=== PATIENT | male | born 1985 | race Caucasian/White ===

== ENCOUNTER 2020-06-04 07:14 | Outpatient (CLI) | payer OTHER, SELFPAY ==
[2020-06-04 08:00] LABS: Basophils Percent Auto 0.4 % (0.2-1.2); Eosinophils Absolute Auto 0.2 K/mm3 (0-0.3); Hematocrit 47.6 % (42.0-52.0); Hemoglobin 16.5 g/dL (14.0-18.0); Immature Granulocyte Absolute 0.03 K/mm3 (0.00-0.031); Immature Granulocyte Percent A 0.6 % (0-0.5); Lymphocytes Absolute Auto 1.33 K/mm3 (0.9-3.2); Lymphocytes Percent Auto 26.8 % (18.3-44.2); Mean Corpuscular HGB Conc 34.7 g/dl (32-36); Mean Corpuscular Volume 89.5 fl (80-100); Mean Platelet Volume 10.3 fl (7.4-10.4); Monocytes Absolute Auto 0.6 K/mm3 (0.1-0.6); Monocytes Percent Auto 11.9 % (2.6-8.5); Neutrophils Absolute Auto 2.9 K/mm3 (1.3-6.7); Neutrophils Percent Auto 57.3 % (45.5-73.1); Platelet Count Result 150 k/mm3 (150-375); Red Blood Count 5.32 M/mm3 (4.6-6.20); Red Cell Distribution Width 12.9 % (11.5-14.5)
[2020-06-04 08:21] LABS: Alanine Aminotransferase 316 U/L (4-50); Albumin Level 4.7 g/dL (3.5-5.1); Alkaline Phosphatase 58 U/L (38-126); Anion Gap 8 mmol/L (8-16); Aspartate Amino Transferase 180 U/L (17-59); Bilirubin,Total 0.7 mg/dL (0.2-1.3); Blood Urea Nitrogen 14 mg/dL (9-20); Calcium 9.5 mg/dL (8.4-10.2); Carbon Dioxide 28 mmol/L (22-30); Chloride 105 mmol/L (98-107); Cholesterol 266 mg/dL (0-200); Estimated Glomerular Filt Rate > 60; Glucose 129 mg/dL (75-110); HDL Direct 56 mg/dL; Potassium 4.7 mmol/L (3.4-5.0); Sodium 141 mmol/L (137-145); Triglycerides 283 mg/dL (<150)
[2020-06-04 08:33] LABS: LDL Cholesterol Direct 183 mg/dL
[2020-06-04 10:25] LABS: Iron 109 ug/dL (49-181)
[2020-06-04 10:34] LABS: Percent Iron Saturation 29 % (20-50)
[2020-06-04 11:00] LABS: Hepatitis B Surface Antigen Negative (Negative)
[2020-06-04 11:08] LABS: HIV 1/2 Ab P24 Ag Result Negative (Negative)
[2020-06-04 11:18] LABS: Hepatitis C Virus Antibody Negative (Negative)
[2020-06-06 21:56] LABS: Amphetamines negative; Barbiturates negative; Benzodiazepines negative; Cocaine Metabolites negative; Marijuana Metabolites negative; PCP negative
[2020-06-07 07:26] LABS: FSH 4.4 mIU/mL (1.6-8.0); LH 4.1 mIU/mL (1.5-9.3)
[2020-06-08 13:02] LABS: Testosterone Free 69.9 pg/mL (35.0-155.0); Testosterone Total 308 ng/dL (250-1100)
[2020-06-11 23:26] LABS: Gliadin AB, IgG 3 Units (<20); Reticulin IgA Negative (Negative); TTG IGA AB 1 U/mL (<4)
[2020-06-14 16:50] LABS: Estradiol, Ultrasensitive 29 pg/mL (< OR = 29)
== END 2020-06-04 07:15 | disposition home or self-care (01) ==
PROVIDERS: PCP Internal Medicine; Visit Provider Clinical Nurse Specialist
DX: R79.89 Other specified abnormal findings of blood chemistry (principal); F41.9 Anxiety disorder, unspecified; R00.0 Tachycardia, unspecified; I10 Essential (primary) hypertension; R74.8 Abnormal levels of other serum enzymes
CPT/HCPCS: 36415; 80053; 80061; 80307; 82670; 82728; 83001; 83002; 83516; 83540; 83550; 84153; 84402; 84403; 84443; 85025; 86255; 86703; 86803; 87340; G0432

== ENCOUNTER 2021-10-28 10:07 | Outpatient (CLI) | payer OTHER, SELFPAY ==
[2021-10-28 18:48] LABS: Basophils Percent Auto 0.3 % (0.2-1.2); Eosinophils Absolute Auto 0.1 K/mm3 (0-0.3); Eosinophils Percent Auto 1.8 % (0-4.4); Hematocrit 49.3 % (42.0-52.0); Hemoglobin 17.4 g/dL (14.0-18.0); Immature Granulocyte Absolute 0.02 K/mm3 (0.00-0.031); Immature Granulocyte Percent A 0.3 % (0-0.5); Lymphocytes Absolute Auto 1.34 K/mm3 (0.9-3.2); Lymphocytes Percent Auto 20.3 % (18.3-44.2); Mean Corpuscular HGB Conc 35.3 g/dl (32-36); Mean Corpuscular Hemoglobin 31.4 pg (26-34); Mean Corpuscular Volume 88.8 fl (80-100); Mean Platelet Volume 10.6 fl (7.4-10.4); Monocytes Absolute Auto 0.6 K/mm3 (0.1-0.6); Monocytes Percent Auto 8.6 % (2.6-8.5); Neutrophils Absolute Auto 4.5 K/mm3 (1.3-6.7); Neutrophils Percent Auto 68.7 % (45.5-73.1); Platelet Count Result 176 k/mm3 (150-375); Red Blood Count 5.55 M/mm3 (4.6-6.20); Red Cell Distribution Width 12.7 % (11.5-14.5); White Blood Count 6.6 K/mm3 (4.5-10.0)
[2021-10-28 19:02] LABS: Alanine Aminotransferase 103 U/L (6-50); Albumin Level 5.1 g/dL (3.5-5.1); Alkaline Phosphatase 64 U/L (38-126); Anion Gap 4 mmol/L (8-16); Aspartate Amino Transferase 85 U/L (17-59); Bilirubin,Total 0.9 mg/dL (0.2-1.3); Blood Urea Nitrogen 13 mg/dL (9-20); Calcium 9.4 mg/dL (8.4-10.2); Carbon Dioxide 35 mmol/L (22-30); Chloride 100 mmol/L (98-107); Cholesterol 259 mg/dL (0-200); Estimated Glomerular Filt Rate > 60; Glucose 114 mg/dL (65-110); HDL Direct 56 mg/dL; Potassium 4.9 mmol/L (3.4-5.0); Sodium 139 mmol/L (137-145); Triglycerides 217 mg/dL (<150)
[2021-10-28 19:14] LABS: LDL Cholesterol Direct 149 mg/dL
== END 2021-10-28 10:08 | disposition home or self-care (01) ==
LOC: ANHGOSHLAB 10:09
PROVIDERS: PCP Internal Medicine; Visit Provider Nurse Practitioner
DX: Z13.220 Encounter for screening for lipoid disorders (principal); R74.8 Abnormal levels of other serum enzymes; E83.110 Hereditary hemochromatosis
CPT/HCPCS: 36415; 80053; 80061; 82728; 85025

== ENCOUNTER 2022-10-06 11:21 | Outpatient (CLI) | payer OTHER, SELFPAY ==
[2022-10-06 19:47] LABS: Basophils Percent Auto 0.3 % (0.2-1.2); Eosinophils Absolute Auto 0.1 K/mm3 (0-0.3); Hematocrit 47.3 % (42.0-52.0); Hemoglobin 16.4 g/dL (14.0-18.0); Immature Granulocyte Absolute 0.03 K/mm3 (0.00-0.031); Immature Granulocyte Percent A 0.4 % (0-0.5); Lymphocytes Absolute Auto 1.59 K/mm3 (0.9-3.2); Lymphocytes Percent Auto 22.6 % (18.3-44.2); Mean Corpuscular HGB Conc 34.7 g/dl (32-36); Mean Corpuscular Hemoglobin 30.9 pg (26-34); Mean Corpuscular Volume 89.1 fl (80-100); Mean Platelet Volume 10.2 fl (7.4-10.4); Monocytes Absolute Auto 0.6 K/mm3 (0.1-0.6); Monocytes Percent Auto 8.1 % (2.6-8.5); Neutrophils Absolute Auto 4.7 K/mm3 (1.3-6.7); Neutrophils Percent Auto 66.6 % (45.5-73.1); Platelet Count Result 177 k/mm3 (150-375); Red Blood Count 5.31 M/mm3 (4.6-6.20); Red Cell Distribution Width 12.6 % (11.5-14.5)
[2022-10-06 20:34] LABS: Alanine Aminotransferase 144 U/L (6-50); Albumin Level 4.9 g/dL (3.5-5.1); Alkaline Phosphatase 63 U/L (38-126); Anion Gap 4 mmol/L (8-16); Aspartate Amino Transferase 91 U/L (17-59); Bilirubin,Total 0.8 mg/dL (0.2-1.3); Blood Urea Nitrogen 11 mg/dL (9-20); Calcium 9.4 mg/dL (8.4-10.2); Carbon Dioxide 35 mmol/L (22-30); Chloride 100 mmol/L (98-107); Cholesterol 243 mg/dL (0-200); Estimated Glomerular Filt Rate > 60; Glucose 78 mg/dL (65-110); HDL Direct 62 mg/dL; Potassium 4.3 mmol/L (3.4-5.0); Sodium 139 mmol/L (137-145); Triglycerides 224 mg/dL (<150)
[2022-10-06 20:47] LABS: LDL Cholesterol Direct 148 mg/dL
[2022-10-10 10:27] LABS: Amphetamines NEGATIVE ng/mL (<500); Barbiturates NEGATIVE ng/mL (<300); Benzodiazepines POSITIVE ng/mL (<100); Cocaine Metabolite NEGATIVE ng/mL (<150); Marijuana Metabolite NEGATIVE ng/mL (<20); Methadone Metabolite NEGATIVE ng/mL (<100); Opiates NEGATIVE ng/mL (<100); Oxidant NEGATIVE mcg/mL (<200); pH 5.4 (4.5-9.0)
== END 2022-10-06 11:22 | disposition home or self-care (01) ==
LOC: ANHGOSHLAB 11:21
PROVIDERS: PCP Internal Medicine; Visit Provider Nurse Practitioner
DX: E83.110 Hereditary hemochromatosis (principal); R74.01 Elevation of levels of liver transaminase levels; F41.9 Anxiety disorder, unspecified; I10 Essential (primary) hypertension
CPT/HCPCS: 36415; 80053; 80061; 80307; 82728; 84443; 85025

== ENCOUNTER 2023-11-06 11:42 | Outpatient (CLI) | payer OTHER, SELFPAY ==
[2023-11-06 18:55] LABS: Basophils Percent Auto 0.5 % (0.2-1.2); Eosinophils Absolute Auto 0.1 K/mm3 (0-0.3); Hematocrit 50.2 % (42.0-52.0); Hemoglobin 17.5 g/dL (14.0-18.0); Immature Granulocyte Absolute 0.03 K/mm3 (0.00-0.031); Immature Granulocyte Percent A 0.3 % (0-0.5); Lymphocytes Absolute Auto 1.27 K/mm3 (0.9-3.2); Lymphocytes Percent Auto 14.8 % (18.3-44.2); Mean Corpuscular HGB Conc 34.9 g/dl (32-36); Mean Corpuscular Hemoglobin 31.9 pg (26-34); Mean Corpuscular Volume 91.4 fl (80-100); Mean Platelet Volume 10.4 fl (7.4-10.4); Monocytes Absolute Auto 0.7 K/mm3 (0.1-0.6); Monocytes Percent Auto 8.6 % (2.6-8.5); Neutrophils Absolute Auto 6.4 K/mm3 (1.3-6.7); Neutrophils Percent Auto 74.8 % (45.5-73.1); Platelet Count Result 188 k/mm3 (150-375); Red Blood Count 5.49 M/mm3 (4.6-6.20); Red Cell Distribution Width 12.7 % (11.5-14.5); White Blood Count 8.6 K/mm3 (4.5-10.0)
[2023-11-06 19:05] LABS: Alanine Aminotransferase 160 U/L (6-50); Albumin Level 4.8 g/dL (3.5-5.1); Alkaline Phosphatase 63 U/L (38-126); Anion Gap 10 mmol/L (4-12); Aspartate Amino Transferase 95 U/L (17-59); Bilirubin,Total 0.7 mg/dL (0.2-1.3); Blood Urea Nitrogen 12 mg/dL (9-20); Calcium 9.4 mg/dL (8.4-10.2); Carbon Dioxide 30 mmol/L (22-30); Chloride 96 mmol/L (98-107); Cholesterol 264 mg/dL (0-200); Estimated Glomerular Filt Rate > 60; Glucose 123 mg/dL (65-110); HDL Direct 70 mg/dL; Potassium 4.7 mmol/L (3.4-5.0); Sodium 136 mmol/L (137-145); Triglycerides 240 mg/dL (<150)
[2023-11-06 19:19] LABS: LDL Cholesterol Direct 170 mg/dL
== END 2023-11-06 11:43 | disposition home or self-care (01) ==
LOC: ANHGOSHLAB 11:43
PROVIDERS: PCP Nurse Practitioner; Visit Provider Nurse Practitioner
DX: Z13.220 Encounter for screening for lipoid disorders (principal); E83.110 Hereditary hemochromatosis; R74.01 Elevation of levels of liver transaminase levels
CPT/HCPCS: 36415; 80053; 80061; 82728; 85025